=== PATIENT | male | born 1980 | race Caucasian/White ===

== ENCOUNTER 2016-10-28 09:13 | Emergency (ER) | payer OTHER ==
[2016-10-28 10:13] VITALS: BP 132/79
== END 2016-10-28 10:13 | disposition home or self-care (01) ==
LOC: ED 09:13
DX: S52.592A Other fractures of lower end of left radius, initial encounter for closed fracture (principal); F17.200 Nicotine dependence, unspecified, uncomplicated; Z79.899 Other long term (current) drug therapy; W19.XXXA Unspecified fall, initial encounter; Y93.89 Activity, other specified; Y92.89 Other specified places as the place of occurrence of the external cause; Y99.8 Other external cause status
CPT/HCPCS: A4570; Q0092